=== PATIENT | female | born 1970 | race Caucasian/White ===

== ENCOUNTER 2021-12-13 15:19 | Emergency (ER) | payer OTHER ==
[~2021-12-13] VITALS: Ht 170.2 cm; Wt 100.9 kg
[2021-12-13 15:37] VITALS: BP 134/79
[2021-12-13] MEDS ORDERED: AMOX500C25 PO (17:25)
[2021-12-13] MEDS ORDERED: IBUP-2218 PO (17:25)
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
== END 2021-12-13 17:42 | disposition home or self-care (01) ==
LOC: MED 15:19
DX: K08.89 Other specified disorders of teeth and supporting structures (principal); R51.9 Headache, unspecified; V49.88XA Car occupant (driver) (passenger) injured in other specified transport accidents, initial encounter; Y93.89 Activity, other specified; Y92.89 Other specified places as the place of occurrence of the external cause; Y99.8 Other external cause status
CPT/HCPCS: 99283